=== PATIENT | male | born 1995 | race Two or more races ===

== ENCOUNTER 2024-01-12 22:26 | Emergency (ER) | payer MEDICAID, OTHER ==
[~2024-01-12] VITALS: Ht 177.8 cm; Wt 88.6 kg
[2024-01-13] MEDS: LIDOCAINE 1% HCL (LOCAL ANESTH.) INJ 20ML MDV ID ONE (04:15)
[2024-01-13] MEDS ORDERED: CLIN1CAP70 PO (04:30)
[2024-01-13] MEDS: HYDROcodone-ACET 10/325MG TAB PO ONE (05:20)
[2024-01-13 05:23] VITALS: BP 130/87; PULSE 107; RESP 19; TEMP 99.3; O2SAT 98
== END 2024-01-13 05:25 | disposition home or self-care (01) ==
LOC: ER 22:26
DX: L05.01 Pilonidal cyst with abscess (principal); Z02.89 Encounter for other administrative examinations
CPT/HCPCS: 10080

== ENCOUNTER 2024-01-18 09:46 | Inpatient (IN) | payer MEDICAID ==
[~2024-01-18] VITALS: Ht 177.8 cm; Wt 83.0 kg
[~2024-01-18 09:46] MED LIST: CLIN1CAP70 PO
[2024-01-18 10:49] LABS: Basophils # (auto) 0.1 10 ^3/uL (0-0.2); Basophils % (auto) 0.6 % (0.0-2.0); Eosinophils # (auto) 0.1 10 ^3/uL (0-0.8); Hematocrit 40.7 % (41.0-53.0); Lymphocytes # (auto) 3.4 10 ^3/uL (0.4-5.4); Lymphocytes % (auto) 38.2 % (10.0-50.0); Mean Corpuscular Hemoglobin 31.3 pg (28.0-32.0); Mean Corpuscular Hgb Conc. 34.5 g/dL (32.0-36.0); Mean Corpuscular Volume 90.8 fL (80.0-100.0); Monocytes # (auto) 0.8 10 ^3/uL (0-1.3); Monocytes % (auto) 9.1 % (0.0-12.0); Neutrophils # (auto) 4.6 10 ^3/uL (1.6-8.6); Neutrophils % (auto) 51.1 % (37.0-80.0); Nucleated Red Blood Cells % 0.1 %; Red Blood Cells 4.48 10^6/uL (4.5-5.90); Red Cell Distribution Width 12.9 % (11.8-14.3); White Blood Cell 8.9 10^3/uL (4.4-10.8)
[2024-01-18 11:00] LABS: Chloride 107 mmol/L (98-107); Potassium 4.4 mmol/L (3.5-5.1); Sodium 141 mmol/L (136-145)
[2024-01-18 11:01] LABS: Anion Gap 8 (5-15); Calcium 9.8 mg/dL (8.5-10.1); Carbon Dioxide 26 mmol/L (20-30)
[2024-01-18 11:06] LABS: Blood Urea Nitrogen 18 mg/dL (9-23); Glucose 95 mg/dL (74-106)
[2024-01-18] MEDS: ASPirin 325 MG TAB PO ONE (12:03)
[2024-01-18] MEDS: SODIUM CHLORIDE 0.9% 1,000 ML IVB ONE (12:04)
[2024-01-18] MEDS: LORazepam 2MG/ML-1ML VIAL IV ONE (13:26)
[2024-01-18 16:27] LABS: Urine Bacteria None Seen /hpf (None Seen); Urine WBC None Seen /hpf (0 - 3)
[2024-01-18 16:37] LABS: Urine Blood Negative /uL (Negative); Urine Clarity Clear (Clear); Urine Color Colorless (Yellow); Urine Protein, UAD Negative (Negative); Urine Specific Gravity 1.003 (1.001-1.035); Urine Urobilinogen Normal (Negative)
[2024-01-18] MEDS: MORPHINE SULFATE INJ 2 MG/ml SYRG IM ONE (16:58)
[2024-01-18] MEDS ORDERED: DOCUSATE SOD 100 MG CAP PO PRN (17:00)
[2024-01-18] MEDS ORDERED: ONDANSETRON HCL 4 MG/2 ML VIAL IV PRN (17:00)
[2024-01-18] MEDS: SODIUM CHLORIDE 0.9% 1,000 ML IV SCH (21:00)
[2024-01-18] MEDS: PANTOPRAZOLE 40 MG/10 ML VIAL INJ IV SCH (23:35)
[2024-01-18] MEDS: HYDROcodone-ACET 5/325MG TAB PO PRN (23:45)
[2024-01-19] VITALS (7 sets, daily range): BP systolic 101–126; BP diastolic 57–91; PULSE 64–91; RESP 14–19; TEMP 97.4–98.4; O2SAT 95–100
[2024-01-19 08:40] LABS: Basophils # (auto) 0 10 ^3/uL (0-0.2); Basophils % (auto) 0.4 % (0.0-2.0); Eosinophils # (auto) 0.1 10 ^3/uL (0-0.8); Eosinophils % (auto) 1.4 % (0.0-7.0); Hemoglobin 12.5 g/dL (13.5-17.5); Lymphocytes # (auto) 2.3 10 ^3/uL (0.4-5.4); Mean Corpuscular Hemoglobin 30.5 pg (28.0-32.0); Mean Corpuscular Hgb Conc. 33.8 g/dL (32.0-36.0); Mean Corpuscular Volume 90.2 fL (80.0-100.0); Monocytes # (auto) 0.6 10 ^3/uL (0-1.3); Monocytes % (auto) 9.2 % (0.0-12.0); Neutrophils # (auto) 3.6 10 ^3/uL (1.6-8.6); Nucleated Red Blood Cells % 0.1 %; Red Cell Distribution Width 13.1 % (11.8-14.3); White Blood Cell 6.6 10^3/uL (4.4-10.8)
[2024-01-19 08:57] LABS: Alanine Aminotransferase 32 U/L (7-40); Albumin 4.2 g/dL (3.2-4.8); Alkaline Phosphatase 76 U/L (46-116); Anion Gap 6 (5-15); Aspartate Aminotransferase 22 U/L (13-40); BUN/Creatinine Ratio 13.7 (10.0-20.0); Bilirubin, Total 0.9 mg/dL (0.2-1.0); Blood Urea Nitrogen 13 mg/dL (9-23); Calcium 8.8 mg/dL (8.5-10.1); Carbon Dioxide 24 mmol/L (20-30); Chloride 111 mmol/L (98-107); Glucose 90 mg/dL (74-106); Sodium 141 mmol/L (136-145); Total Protein 6.4 g/dL (5.7-8.2)
[2024-01-19] MEDS ORDERED: LACTCAP35 OR (10:34)
[2024-01-20 05:00] VITALS: BP 92/58; PULSE 71; RESP 18; TEMP 97.8; O2SAT 97
[2024-01-20 07:06] LABS: INR 1.04 (0.9-1.15); Partial Thromboplastin Time 25.9 SEC (24.5-34.5)
[2024-01-20 10:50] VITALS: PULSE 67; RESP 16; O2SAT 96
[2024-01-20 17:00] VITALS: BP 128/84; PULSE 76; RESP 18; TEMP 98.1; O2SAT 95
[2024-01-20] MEDS: SUCRALFATE 1 GM TAB PO SCH (17:23)
[2024-01-20] MEDS: POLYETHYLENE GLYCOL 17 GM PWDR PO PRN (17:23)
[2024-01-20 21:00] VITALS: BP 129/57; PULSE 90; RESP 18; TEMP 97.5; O2SAT 98
[2024-01-21 05:00] VITALS: BP 99/66; PULSE 67; RESP 17; TEMP 97.7; O2SAT 97
[2024-01-21 09:00] VITALS: BP 110/60; PULSE 78; RESP 20; TEMP 97.4; O2SAT 100
[2024-01-21] MEDS ORDERED: SUCR1TAB PO (11:49)
[2024-01-21] MEDS ORDERED: PANT40TA2 PO (11:49)
== END 2024-01-21 14:30 | disposition home or self-care (01) | DRG 241 ==
LOC: ER 09:46 → OVERFLOW 16:52 → EAST 16:52
PROVIDERS: ADMIT Nurse Practitioner Family; ATTEND Internal Medicine
PROC: 0DB68ZX Excision of Stomach, Via Natural or Artificial Opening Endoscopic, Diagnostic (ICD-10-PCS; principal; 2024-01-20 10:23)
DX: K25.4 Chronic or unspecified gastric ulcer with hemorrhage (principal); K20.91 Esophagitis, unspecified with bleeding; R07.9 Chest pain, unspecified; Z59.00 Homelessness unspecified; Z79.899 Other long term (current) drug therapy
CPT/HCPCS: 36415; 74176; 74181; 80048; 80053; 81001; 84484; 85025; 85610; 85730; 86850; 86900; 86901; 93005; C9113; G0378